=== PATIENT | female | born 1960 | race African-American/Black ===

== ENCOUNTER 2020-06-16 13:11 | Emergency (ER) | payer OTHER ==
[~2020-06-16] VITALS: Ht 172.7 cm; Wt 75.0 kg
[2020-06-16 13:41] VITALS: BP 135/88
== END 2020-06-16 16:08 | disposition home or self-care (01) ==
LOC: ER 13:11
DX: L73.2 Hidradenitis suppurativa (principal); Z88.0 Allergy status to penicillin; Z86.73 Personal history of transient ischemic attack (TIA), and cerebral infarction without residual deficits; Z86.718 Personal history of other venous thrombosis and embolism
CPT/HCPCS: 93971; 99284